=== PATIENT | male | born 1950 | race Caucasian/White ===

== ENCOUNTER 2023-06-18 12:14 | Inpatient (IN) ==
--- NOTE | 2023-06-18 12:20 | Emergency Department Note ---
Impression & Plan Symptomatic bradycardia, Atrial fibrillation, Subconjunctival hemorrhage ED Provider Note NAME: LAMBERT RAYMOND AGE: 73 SEX: M : 1950 ARRIVES VIA: Ambulance INFORMANT: Patient, ED PROVIDER(S): Julio Marquez DO CHIEF COMPLAINT: Weakness HPI: Is a 73-year-old male who presented to the emergency department directly from the [facility] for an evaluation of slow heart rate. The patient has a history of atrial fibrillation. He does take metoprolol. He has had no changes to his medication regimen. He does not take digoxin. The patient states he noticed some redness in the corner of his right eye. He was going in to be seen for this. When they took his vital signs he was noted to have low heart rate and he was sent to the emergency department by ambulance. ROS: See above HPI for pertinent positives & negatives. A total of 10 systems reviewed and were otherwise negative. PAST MEDICAL HISTORY: See Below PAST SURGICAL HISTORY: See Below FAMILY HISTORY: See Below SOCIAL HISTORY: See Below HOME MEDICATIONS: See Below ALLERGIES: See Below VITALS: See Below PHYSICAL EXAMINATION: GENERAL: Patient is awake alert in no acute distress patient is resting comfortably and showing no signs of anxiety EYES: A right subconjunctival hemorrhage was noted. The pupils are round and reactive. EARS, NOSE, MOUTH AND THROAT: The nose is without any evidence of any deformity. NECK: The neck is nontender and supple. RESPIRATORY: Normal respiratory effort is noted there is no evidence of wheezing rhonchi or rales CARDIOVASCULAR: Bradycardic heart rate was noted to auscultation. There is no definite murmur. GASTROINTESTINAL: The abdomen is soft. Abdomen is nontender. MUSCULOSKELETAL/EXTREMITIES: There is no evidence of gross deformity full range of motion is noted in the hips and shoulders. SKIN: Trace pedal edema was noted. NEUROLOGIC: Patient is awake alert and oriented x3 MEDICAL DECISION MAKING: The patient is a 73-year-old male who presented to the emergency department for low heart rate. The patient had a subconjunctival hemorrhage. The patient was seen at his family doctor's office but sent to the emergency department because of bradycardia. The patient has a history of atrial fibrillation. He does take beta-blockers. The patient does not take digoxin. The patient has been having weakness over the course the last few weeks. He is most likely having symptomatic bradycardia. I discussed the patient's laboratory and radiographic studies with him. Because of his ongoing bradycardia I discussed his condition with the on-call [facility] hospitalist group. They have agreed to evaluate the patient in the emergency department for further management and disposition. Triage Nursing notes reviewed. Prior medical records reviewed Vital Signs: reviewed and remarkable for elevated blood pressure and bradycardia. Differential diagnosis: Infection, dehydration, metabolic abnormality, hypo/hyperglycemia, electrolyte disturbance, anemia, hypoxia, cardiac sources, intracerebral event, toxicologic, neurologic, as well as other pathologies. ER treatment provided: See below Diagnostics interpreted by me: ECG: EKG was obtained in the emergency department. My interpretation is atrial fibrillation at 42 bpm. Right bundle-branch block pattern was noted. There were no PVCs. This was compared to the tracing that was sent from the [place] [facility] that was done at 1136 this AM. No significant changes were noted. Cardiac Monitoring: An order was placed for continuous cardiac monitoring. The monitor shows a rate of 45 bpm with atrial fibrillation. Laboratory studies: As stated above and show below. Imaging studies: See below. Radiographic imaging was reviewed by myself Consultation(s): I discussed this case with Becky who is on-call for the [facility] hospitalist group. Past Med/Surg History Medical History (Updated 06/18/23 @ 16:08 by Julio Marquez DO) Acne rosacea Atrial fibrillation Gout History of stroke HLD (hyperlipidemia) HTN (hypertension) ADE on CPAP Surgical History (Updated 06/18/23 @ 14:40 by Fina Santana PA-C) H/O lumbosacral spine surgery History of appendectomy S/p total knee replacement, bilateral Family History (Updated 06/18/23 @ 14:41 by Fina Santana PA-C) Mother Heart disease Stroke Father Stroke Cancer Social History (Updated 06/18/23 @ 14:41 by Fina Santana PA-C) Smoking Status: Former smoker Hx Alcohol Use: Yes Feels Safe at Home: Yes Allergies Allergies Allergy/AdvReac Type Severity Reaction Status Date / Time No Known Allergies Allergy Unverified 06/18/23 14:28 Home Meds Home Medications Medication Instructions Recorded Confirmed Prevagen 1 mg PO QAM 06/18/23 06/18/23 allopurinol 200 mg tablet 200 mg PO DAILY 06/18/23 06/18/23 apixaban 5 mg tablet 5 mg PO BID 06/18/23 06/18/23 atorvastatin 40 mg tablet 40 mg PO HS 06/18/23 06/18/23 cholecalciferol (vitamin D3) 50 50 mcg PO DAILY 06/18/23 06/18/23 mcg (2,000 unit) tablet (Vitamin D3) doxycycline hyclate 100 mg tablet 100 mg PO DAILY 06/18/23 06/18/23 lactobacillus combination no.4 3 3,000 mmu cells PO DAILY 06/18/23 06/18/23 billion cell capsule (Probiotic) metformin 500 mg tablet 500 mg PO BID 06/18/23 06/18/23 metoprolol tartrate 50 mg tablet 50 mg PO BID 06/18/23 06/18/23 metronidazole 0.75 % topical cream 1 applic topical BID 06/18/23 06/18/23 multivitamin 1 tab PO DAILY 06/18/23 06/18/23 pregabalin 150 mg capsule 150 mg PO BID 06/18/23 06/18/23 sildenafil 50 mg tablet 50 mg PO DAILY PRN Sexual Activity 06/18/23 06/18/23 tretinoin 0.1 % topical cream 1 applic topical HS 06/18/23 06/18/23 Results & Data (ED) Vital Signs Vital Signs - 24 hr 06/18/23 12:23 06/18/23 12:24 06/18/23 12:28 Temperature 36.8 C Temperature Source Oral Pulse Rate 47 L 48 L 47 L Pulse Rate [Apical] Respiratory Rate 18 17 Blood Pressure 148/80 H 148/80 H Blood Pressure [Right Arm] Blood Pressure Mean 102 102 Blood Pressure Mean [Right Arm] Pulse Oximetry 97 97 Oxygen Delivery Method Room Air Room Air Sepsis Recent Fever Within 48 Hours No Sepsis New/Unexplained Change in Mental Status N/A Sepsis Action Taken by Nursing No Action Required 06/18/23 13:30 06/18/23 14:26 06/18/23 15:00 Temperature Temperature Source Pulse Rate 40 L 45 L Pulse Rate [Apical] 42 L Respiratory Rate 18 17 Blood Pressure 140/80 148/80 H Blood Pressure [Right Arm] 148/80 H Blood Pressure Mean 100 102 Blood Pressure Mean [Right Arm] 102 Pulse Oximetry 95 97 98 Oxygen Delivery Method Room Air Room Air Room Air Sepsis Recent Fever Within 48 Hours Sepsis New/Unexplained Change in Mental Status Sepsis Action Taken by Fpc Medications Current Medication List: was personally reviewed by me Laboratory Data Attestation: I reviewed the patient's lab results. 06/18/23 12:25 06/18/23 12:25 Lab Results 06/18/23 06/18/23 06/18/23 Range/Units 12:25 12:25 12:25 WBC 6.31 (4.8-10.8) K/ul RBC 4.69 L (4.70-6.10) M/uL Hgb 15.0 (14.0-18.0) g/dl Hct 44.2 (42.0-52.0) % MCV 94.2 (80.0-100.0) fL MCH 32.0 (25.0-34.0) pg MCHC 33.9 (32.0-36.0) g/dL RDW Std Deviation 44.3 (36.4-46.3) fL RDW Coeff of Gabriel 12.9 (11.5-14.5) % Plt Count 154 (130-400) K/uL MPV 11.7 (9.4-12.4) fL Immature Gran % (Auto) 0.3 % Neut % (Auto) 65.4 % Lymph % (Auto) 23.5 % [place] % (Auto) 8.4 % Eos % (Auto) 1.9 % Baso % (Auto) 0.5 % Neut # (Auto) 4.13 (1.40-6.50) K/uL Lymph # (Auto) 1.48 (1.20-3.40) K/uL [place] # (Auto) 0.53 (0.11-0.59) K/uL Eos # (Auto) 0.12 (0.00-0.50) K/uL Baso # (Auto) 0.03 (0.00-0.20) K/uL Immature Gran # (Auto) 0.02 (0.01-0.20) K/uL PT 11.4 (9.0-12.0) Seconds INR 1.0 (0.9-1.1) APTT 31.6 H (21.0-31.0) Seconds PTT Ratio 1.1 Sodium 141 (136-145) mmol/L Potassium 4.4 (3.5-5.1) mmol/L Chloride 107 (98-107) mmol/L Carbon Dioxide 30 (21-32) mmol/L Anion Gap 4 (3-11) BUN 12 (6-23) mg/dl Creatinine 0.73 (0.6-1.4) mg/dl Est Cr Clr Drug Dosing 124.0 ml/min Est GFR ( Amer) 108.2 ml/min Est GFR (Non-Af Amer) 93.3 ml/min BUN/Creatinine Ratio 16.4 (10-20) Glucose 88 (70-99(Fasting)) mg/dl Calcium 9.2 (8.6-10.3) mg/dl Magnesium 2.1 (1.7-2.4) mg/dl Total Bilirubin 2.5 H (0.2-1.0) mg/dl AST 21 (13-39) U/L ALT 24 (7-52) U/L Alkaline Phosphatase 71 (34-104) U/L Troponin I High Sens 6.1 (0-20) pg/ml Total Protein 6.9 (6.0-8.3) gm/dl Albumin 4.3 (3.4-5.0) gm/dl Globulin 2.6 (2.5-4.0) gm/dl Albumin/Globulin Ratio 1.7 (0.9-2) TSH (0.300-4.500) uIu/ml Anaplasma Smear See Comment Babesia Smear See Comment 06/18/23 Range/Units 12:25 WBC (4.8-10.8) K/ul RBC (4.70-6.10) M/uL Hgb (14.0-18.0) g/dl Hct (42.0-52.0) % MCV (80.0-100.0) fL MCH (25.0-34.0) pg MCHC (32.0-36.0) g/dL RDW Std Deviation (36.4-46.3) fL RDW Coeff of Gabriel (11.5-14.5) % Plt Count (130-400) K/uL MPV (9.4-12.4) fL Immature Gran % (Auto) % Neut % (Auto) % Lymph % (Auto) % [place] % (Auto) % Eos % (Auto) % Baso % (Auto) % Neut # (Auto) (1.40-6.50) K/uL Lymph # (Auto) (1.20-3.40) K/uL [place] # (Auto) (0.11-0.59) K/uL Eos # (Auto) (0.00-0.50) K/uL Baso # (Auto) (0.00-0.20) K/uL Immature Gran # (Auto) (0.01-0.20) K/uL PT (9.0-12.0) Seconds INR (0.9-1.1) APTT (21.0-31.0) Seconds PTT Ratio Sodium (136-145) mmol/L Potassium (3.5-5.1) mmol/L Chloride (98-107) mmol/L Carbon Dioxide (21-32) mmol/L Anion Gap (3-11) BUN (6-23) mg/dl Creatinine (0.6-1.4) mg/dl Est Cr Clr Drug Dosing ml/min Est GFR ( Amer) ml/min Est GFR (Non-Af Amer) ml/min BUN/Creatinine Ratio (10-20) Glucose (70-99(Fasting)) mg/dl Calcium (8.6-10.3) mg/dl Magnesium (1.7-2.4) mg/dl Total Bilirubin (0.2-1.0) mg/dl AST (13-39) U/L ALT (7-52) U/L Alkaline Phosphatase (34-104) U/L Troponin I High Sens (0-20) pg/ml Total Protein (6.0-8.3) gm/dl Albumin (3.4-5.0) gm/dl Globulin (2.5-4.0) gm/dl Albumin/Globulin Ratio (0.9-2) TSH 1.157 (0.300-4.500) uIu/ml Anaplasma Smear Babesia Smear Imaging Data Attestation: I personally reviewed and interpreted this imaging study as follows: My Impression: 1 view chest x-ray was obtained in the emergency department. My interpretation is no free air or definite infiltrate, final report below. Radiologist's Impression: Chest X-Ray 06/18/23 12:18 XR chest 1V portable HISTORY: 73 years-old Male Dysrhythmia COMPARISON: None TECHNIQUE: AP view of the chest FINDINGS: Cardiac silhouette is enlarged. Mediastinal contours are within normal limits. No pneumothorax, pleural effusion, airspace consolidation or pulmonary edema. Bones appear grossly intact. Degenerative changes of the shoulders and spine. IMPRESSION: Cardiomegaly without acute process. ACT 112: Negative or not required by law. The above report was generated using voice recognition software. It may contain grammatical, syntax or spelling errors. Electronically signed by: Gurpreet Lindo M.D. 06/18/2023 12:58 PM Discharge Plan Visit Data Chief Complaint: Bradycardia Stated Complaint: BRADYCARDIA ED Provider: Julio Marquez Discharge Problem: Symptomatic bradycardia, Atrial fibrillation, Subconjunctival hemorrhage Patient Disposition: Home - Self-Care Forms Stand Alone Forms: [facility], [facility] Emergency Department, Important Visit Information Prescriptions Prescriptions: No Action Prevagen 1 mg PO QAM multivitamin Tablet 1 tab PO DAILY tretinoin 0.1 % Cream 1 applic TOPICAL HS atorvastatin 40 mg Tablet 40 mg PO HS metformin 500 mg Tablet 500 mg PO BID sildenafil 50 mg Tablet 50 mg PO DAILY MDD 1 PRN (Reason: Sexual Activity) Rx Instructions: administer 30 minutes to 4 hours before activity metronidazole 0.75 % Cream 1 applic TOPICAL BID metoprolol tartrate 50 mg Tablet 50 mg PO BID doxycycline hyclate 100 mg Tablet 100 mg PO DAILY pregabalin 150 mg Capsule 150 mg PO BID apixaban 5 mg Tablet 5 mg PO BID Probiotic 3 billion cell Capsule 3,000 mmu cells PO DAILY Rx Instructions: administer with a meal allopurinol 200 mg Tablet 200 mg PO DAILY cholecalciferol (vitamin D3) [Vitamin D3] 50 mcg (2,000 unit) Tablet 50 mcg PO DAILY Referrals Referrals: PCP,NO [Physician] -
[2023-06-18 12:49] LABS: Basophils # (auto) 0.03 K/uL (0.00-0.20); Basophils % (auto) 0.5 %; Eosinophils # (auto) 0.12 K/uL (0.00-0.50); Eosinophils % (auto) 1.9 %; Hematocrit (blood only) 44.2 % (42.0-52.0); Immature Granulocytes # (auto) 0.02 K/uL (0.01-0.20); Immature Granulocytes % (auto) 0.3 %; Lymphocytes # (auto) 1.48 K/uL (1.20-3.40); Lymphocytes % (auto) 23.5 %; Mean Corpuscular Hgb Conc 33.9 g/dL (32.0-36.0); Mean Corpuscular Volume 94.2 fL (80.0-100.0); Mean Platelet Volume 11.7 fL (9.4-12.4); Monocytes # (auto) 0.53 K/uL (0.11-0.59); Monocytes % (auto) 8.4 %; Neutrophils # (auto) 4.13 K/uL (1.40-6.50); Neutrophils % (auto) 65.4 %; Platelet Count 154 K/uL (130-400); RDW Coefficient of Variation 12.9 % (11.5-14.5); RDW Standard Deviation 44.3 fL (36.4-46.3); Red Blood Count 4.69 M/uL (4.70-6.10); White Blood Count 6.31 K/ul (4.8-10.8)
[2023-06-18 12:57] LABS: Partial Thromboplastin Ratio 1.1; Partial Thromboplastin Time 31.6 Seconds (21.0-31.0); Prothrombin Time 11.4 Seconds (9.0-12.0)
--- NOTE | 2023-06-18 13:00 | XRay Report ---
XR chest 1V portable HISTORY: 73 years-old Male Dysrhythmia COMPARISON: None TECHNIQUE: AP view of the chest FINDINGS: Cardiac silhouette is enlarged. Mediastinal contours are within normal limits. No pneumothorax, pleur al effusion, airspace consolidation or pulmonary edema. Bones appear grossly intact. Degenerative mustapha nges of the shoulders and spine. IMPRESSION: Cardiomegaly without acute process. ACT 112: Negative or not required by law. The above report was generated using voice recognition software. It may contain grammatical, syntax o r spelling errors. Electronically signed by: Gurpreet Lindo M.D. 06/18/2023 12:58 PM
[2023-06-18 13:08] LABS: Albumin Globulin Ratio 1.7 (0.9-2); Albumin Level 4.3 gm/dl (3.4-5.0); BUN Creatinine Ratio 16.4 (10-20); Bilirubin,Total 2.5 mg/dl (0.2-1.0); Calcium 9.2 mg/dl (8.6-10.3); Est GFR (African American) 108.2 ml/min; Est GFR (Non-African American) 93.3 ml/min; Globulin 2.6 gm/dl (2.5-4.0); Magnesium 2.1 mg/dl (1.7-2.4); Potassium 4.4 mmol/L (3.5-5.1); Total Protein 6.9 gm/dl (6.0-8.3)
[2023-06-18 13:14] LABS: Troponin I High Sensitivity 6.1 pg/ml (0-20)
--- NOTE | 2023-06-18 14:43 | History & Physical Report ---
Date of Service June 18, 2023 Assessment & Plan (1) Atrial fibrillation: (2) HTN (hypertension): (3) HLD (hyperlipidemia): (4) Bradycardia: (5) Obesity (BMI 35.0-39.9 without comorbidity): (6) ADE on CPAP: Plan: 73-year-old male with PMHx of chronic A-fib, HTN, HLD, ADE on CPAP, history of stroke, s/p thyroid nodule removal, severe obesity, who presented to outpatient [facility] office today for a conjunctival hemorrhage where he was noted to have heart rate in the 40s there so was referred to the ER. A-fib chronic Bradycardia -Admit to PCU for observation overnight -Heart rate has been consistently in the high 30s during evaluation, highest is 45, patient reports that this has been ongoing for the past 2 months and has received multiple number of alerts on his Apple Watch signifying low heart rate. He admits to increased fatigue and wearing out whenever he is doing something very physical. 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 Occasionally admits to lightheadedness. Denies any chest pain or shortness of breath. -will hold metoprolol dose this evening and possibly resume metoprolol tartrate 25 twice daily tomorrow pending improvement in heart rate -Cardiology consulted -Echocardiogram ordered -Check TSH, Lyme's panel, anaplasmosis Rosacea -Patient may continue metronidazole and tretinoin cream topically, patient is also on doxycycline 200 mg once in the morning for this Gout -Continue allopurinol HLD - Chronic, stable, continue atorvastatin - Check lipid panel with am labs ADE on CPAP - Will order cpap here renyaldo, does not have his machine with him currently DM type II -Check A1c with a.m. labs -Holding p.o. metformin -Check ISS with Accu-Cheks ACHS Obesity - Diet and exercise to be discussed during stay - BMI 35.8 DVT ppx: beatrice /FEN: HH/DM diet IV/Lines: 2 peripheral IVs CODE: FULL Dispo: From home, observation overnight and likely discharge home tomorrow History of Present Illness Chief Complaint: Bradycardia Primary Care Provider: [facility] This is a 73-year-old male with PMHx of chronic A-fib, HTN, HLD, ADE on CPAP, history of stroke, s/p thyroid nodule removal, severe obesity, who presented to outpatient [facility] office today for a conjunctival hemorrhage where he was noted to have heart rate in the 40s there so was referred to the ER. 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 Honestly he has noticed his HR on his watch be in the 40s intermittently for the past 2 months. He Denies chest pain and shortness of breath. His watch gives him a warning when his HR is below 40 and has been doing this pretty consistently. Patient has been taking his medications as instructed including metoprolol 50 mg twice a day. Allergies Allergy/AdvReac Type Severity Reaction Status Date / Time No Known Allergies Allergy Unverified 06/18/23 14:28 Home Medications Medication Instructions Recorded Confirmed Type allopurinol 200 mg tablet 200 mg PO DAILY 06/18/23 06/18/23 History apixaban 5 mg tablet 5 mg PO BID 06/18/23 06/18/23 History atorvastatin 40 mg tablet 40 mg PO HS 06/18/23 06/18/23 History cholecalciferol (vitamin D3) 50 50 mcg PO DAILY 06/18/23 06/18/23 History mcg (2,000 unit) tablet (Vitamin D3) doxycycline hyclate 100 mg tablet 100 mg PO DAILY 06/18/23 06/18/23 History lactobacillus combination no.4 3 3,000 mmu cells PO DAILY 06/18/23 06/18/23 History billion cell capsule (Probiotic) metformin 500 mg tablet 500 mg PO BID 06/18/23 06/18/23 History metronidazole 0.75 % topical cream 1 applic topical BID 06/18/23 06/18/23 History multivitamin 1 tab PO DAILY 06/18/23 06/18/23 History sildenafil 50 mg tablet 50 mg PO DAILY PRN Sexual Activity 06/18/23 06/18/23 History tretinoin 0.1 % topical cream 1 applic topical HS 06/18/23 06/18/23 History Past Med/Surg History Medical History Acne rosacea Atrial fibrillation Gout History of stroke HLD (hyperlipidemia) HTN (hypertension) ADE on CPAP Surgical History H/O lumbosacral spine surgery History of appendectomy S/p total knee replacement, bilateral Family History Mother Heart disease Stroke Father Stroke Cancer Social History Smoking Status: Never smoker Hx Alcohol Use: Yes Alcohol type: hard liquor Hx Substance Use: No Preferred Language: Malawian 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 Beliefs That Will Affect Care: None Current Living Situation: Spouse Other Information That Helps Us Care for You: No Feels Safe at Home: Yes Safety Concerns: Feels Safe At This Time Assistive Devices: Denture - Upper, Denture - Lower and Hearing Aid - Bilateral Review of Systems Review of Systems: Constitutional: No fever, sweats or chills Eyes: No diplopia, no worsening or blurred vision ENT: normal hearing, no trouble swallowing Respiratory: No cough, sputum, dyspnea at rest or on exertion Cardiovascular: No chest pain, tightness or palpitations, As per HPI Abdomen: No pain, nausea, vomiting, diarrhea or constipation Musculoskeletal: No joint pain, calf pain, swelling Neurologic: No weakness, numbness/tingling, or balance problems Psychiatric: No anxiety or depression Skin: No rash or itch Physical Exam Physical Exam: General: awake, alert, no apparent distress,+ obese with BMI of 35.8 Head: Normocephalic, atraumatic ENT: PERRL, EOMI, no pharyngeal exudate, mucous membranes moist Chest: Clear to auscultation, on room air, no adventitious breath sounds Cardiac Bradycardic in the high 30s and irregularly irregular, no murmur, no JVD, normal peripheral pulses, good capillary refill Abdominal: NABS x 4 quadrants, soft, nondistended, nontender to palpation, no rebound or guarding Extremities: Normal inspection, no peripheral edema or erythema, calfs nontender to palpation Psych: Normal mood and affect Neuro: AAO x 3, strength intact bilaterally and rated 5/5, no motor deficits, speech is clear, no peripheral sensory deficits Results & Data Results & Data Vital Signs (Past 12 Hours) Vital Signs Temp Pulse Pulse Resp BP BP Pulse Ox 06/18/23 14:26 42 L 148/80 H 97 06/18/23 13:30 40 L 18 140/80 95 06/18/23 12:28 47 L 17 148/80 H 97 06/18/23 12:24 48 L 06/18/23 12:23 36.8 C 47 L 18 148/80 H 97 O2 Del Method 06/18/23 14:26 Room Air 06/18/23 13:30 Room Air 06/18/23 12:28 Room Air 06/18/23 12:24 06/18/23 12:23 Room Air Laboratory Results 06/18/23 06/18/23 06/18/23 12:25 12:25 12:25 WBC RBC Hgb Hct MCV MCH MCHC RDW Std Deviation RDW Coeff of Gabriel Plt Count MPV Immature Gran % (Auto) Neut % (Auto) Lymph % (Auto) [place] % (Auto) Eos % (Auto) Baso % (Auto) Neut # (Auto) Lymph # (Auto) [place] # (Auto) Eos # (Auto) Baso # (Auto) Immature Gran # (Auto) PT 11.4 INR 1.0 APTT 31.6 H PTT Ratio 1.1 Sodium 141 Potassium 4.4 Chloride 107 Carbon Dioxide 30 Anion Gap 4 BUN 12 Creatinine 0.73 Est Cr Clr Drug Dosing 124.0 Est GFR ( Amer) 108.2 Est GFR (Non-Af Amer) 93.3 BUN/Creatinine Ratio 16.4 Glucose 88 Calcium 9.2 Magnesium 2.1 Total Bilirubin 2.5 H AST 21 ALT 24 Alkaline Phosphatase 71 Troponin I High Sens 6.1 Total Protein 6.9 Albumin 4.3 Globulin 2.6 Albumin/Globulin Ratio 1.7 TSH 1.157 06/18/23 12:25 WBC 6.31 RBC 4.69 L Hgb 15.0 Hct 44.2 MCV 94.2 MCH 32.0 MCHC 33.9 RDW Std Deviation 44.3 RDW Coeff of Gabriel 12.9 Plt Count 154 MPV 11.7 Immature Gran % (Auto) 0.3 Neut % (Auto) 65.4 Lymph % (Auto) 23.5 [place] % (Auto) 8.4 Eos % (Auto) 1.9 Baso % (Auto) 0.5 Neut # (Auto) 4.13 Lymph # (Auto) 1.48 [place] # (Auto) 0.53 Eos # (Auto) 0.12 Baso # (Auto) 0.03 Immature Gran # (Auto) 0.02 PT INR APTT PTT Ratio Sodium Potassium Chloride Carbon Dioxide Anion Gap BUN Creatinine Est Cr Clr Drug Dosing Est GFR ( Amer) Est GFR (Non-Af Amer) BUN/Creatinine Ratio Glucose Calcium Magnesium Total Bilirubin AST ALT Alkaline Phosphatase Troponin I High Sens Total Protein Albumin Globulin Albumin/Globulin Ratio TSH Diagnostic Findings Chest X-Ray 06/18/23 12:18 XR chest 1V portable HISTORY: 73 years-old Male Dysrhythmia COMPARISON: None TECHNIQUE: AP view of the chest FINDINGS: Cardiac silhouette is enlarged. Mediastinal contours are within normal limits. No pneumothorax, pleural effusion, airspace consolidation or pulmonary edema. Bones appear grossly intact. Degenerative changes of the shoulders and spine. IMPRESSION: Cardiomegaly without acute process. ACT 112: Negative or not required by law. The above report was generated using voice recognition software. It may contain grammatical, syntax or spelling errors. Electronically signed by: Gurpreet Lindo M.D. 06/18/2023 12:58 PM ECG Additional Comments: 18-JUN-2023 12:20:18 [facility]-EDSTAT ROUTINE RETRIEVAL Atrial fibrillation with slow ventricular response Left axis deviation Right bundle branch block Abnormal ECG No previous ECGs available 25mm/[id number] 243CID: 21Unconfirmed Vent. rate 42 BPM MA interval * ms QRS duration 168 ms QT/QTc 516/430 ms Code Status & VTE Plan Code Status Full code: Discussed with the patient at bedside Supervising Physician Co-Signing Physician Notes Pt was seen and examined. Agreed with Fina JO exam, assessment and plan. 73-year-old male with PMHx of chronic A-fib, HTN, HLD, ADE on CPAP, history of stroke, s/p thyroid nodule removal, severe obesity [facility] today for a conjunctival hemorrhage where he was noted to have heart rate in the 40s there so was referred to the ER. 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 Honestly he has noticed his HR on his watch be in the 40s intermittently for the past 2 months. He Denies chest pain and shortness of breath. His watch gives him a warning when his HR is below 40 and has been doing this pretty consistently. Patient has been taking his medications as instructed including metoprolol 50 mg twice a day.
--- NOTE | 2023-06-18 16:25 | Cardiology Consultation ---
Date of Consultation June 18, 2023 Assessment & Plan (1) Atrial fibrillation with slow ventricular response: (2) HLD (hyperlipidemia): (3) HTN (hypertension): Plan 73-year-old male referred from outpatient [place] clinic due to bradycardia. Patient with positional lightheadedness. No overt syncope or near syncope. Rhythm is atrial fibrillation with slow ventricular response. No significant pauses currently however heart rate dipping as low as 30 bpm. Hold beta-issa thera py. Continue telemetry monitoring. Evaluation regarding tickborne illness. Continue oral anticoagulation with Eliquis. No indication for temporary transvenous pacemaker at this time. History of Present Illness Reason for Consultation: Bradycardia Requesting Physician: Dr. Alonzo Attending Physician: Dr. Alonzo History of Present Illness 73-year-old male present to the emergency department via [facility] clinic. Evaluated today due to subconjunctival hemorrhage. During visit, significant bradycardia noted on exam and he was referred to the emergency department for further evaluation and treatment. In the ER telemetry reveals atrial fibrillation with heart rate ranging from 35 up to 45 bpm. Patient reports occasional lightheadedness primarily with positional change. No syncope or near syncope. Chronically anticoagulated with Eliquis. Treated with beta- issa, metoprolol 50 mg twice daily. Denies exertional chest pain or unusual shortness of breath. Active on a daily basis. 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 Denies any recent change or decline in functional capacity. No palpitations, orthopnea, or PND. Reports pedal edema present near the end of the day primarily in hot weather. Denies personal history of congestive heart failure, rheumatic fever as a child, coronary artery disease, or peripheral vascular disease. Reports a recent diagnosis of diabetes. He is generally cared for in the [place] medical system. Unknown to the [facility] cardiology practice. Allergies Allergy/AdvReac Type Severity Reaction Status Date / Time No Known Allergies Allergy Unverified 06/18/23 14:28 Home Medications Medication Instructions Recorded Confirmed Type allopurinol 200 mg tablet 200 mg PO DAILY 06/18/23 06/18/23 History apixaban 5 mg tablet 5 mg PO BID 06/18/23 06/18/23 History atorvastatin 40 mg tablet 40 mg PO HS 06/18/23 06/18/23 History cholecalciferol (vitamin D3) 50 50 mcg PO DAILY 06/18/23 06/18/23 History mcg (2,000 unit) tablet (Vitamin D3) doxycycline hyclate 100 mg tablet 100 mg PO DAILY 06/18/23 06/18/23 History lactobacillus combination no.4 3 3,000 mmu cells PO DAILY 06/18/23 06/18/23 History billion cell capsule (Probiotic) metformin 500 mg tablet 500 mg PO BID 06/18/23 06/18/23 History metoprolol tartrate 50 mg tablet 50 mg PO BID 06/18/23 06/18/23 History metronidazole 0.75 % topical cream 1 applic topical BID 06/18/23 06/18/23 History multivitamin 1 tab PO DAILY 06/18/23 06/18/23 History sildenafil 50 mg tablet 50 mg PO DAILY PRN Sexual Activity 06/18/23 06/18/23 History tretinoin 0.1 % topical cream 1 applic topical HS 06/18/23 06/18/23 History Patient History Medical History Acne rosacea Atrial fibrillation Gout History of stroke HLD (hyperlipidemia) HTN (hypertension) ADE on CPAP Surgical History H/O lumbosacral spine surgery History of appendectomy S/p total knee replacement, bilateral Family History Mother Heart disease Stroke Father Stroke Cancer Social History Smoking Status: Former smoker Hx Alcohol Use: Yes Feels Safe at Home: Yes Review of Systems Review of Systems: All systems reviewed & are unremarkable except as noted in Subjective Physical Exam Constitutional: well developed and well nourished; no acute distress Respiratory: no respiratory distress, no labored breathing and no retractions Auscultation: lungs clear to auscultation bilaterally; no crackles, no rales and no rhonchi Cardiovascular: Rate/Rhythm: regular rate and regular rhythm Heart Sounds: normal S1 and normal S2; no murmur Vessels: no JVD and no carotid bruit Extremities: no edema Gastrointestinal (Abdomen): Inspection/Auscultation: abdomen normal to inspection and normal bowel sounds; abdomen not distended Percussion/Palpation: abdomen soft; abdomen nontender, no guarding and abdomen not rigid Neurologic: CN's II-XI intact bilaterally and moves all extremities; no focal motor deficits Psychiatric: A+Ox3, euthymic affect Results & Data Vital Signs (Past 12 Hours) Vital Signs Temp Pulse Pulse Resp BP BP Pulse Ox 06/18/23 15:00 45 L 17 148/80 H 98 06/18/23 14:26 42 L 148/80 H 97 06/18/23 13:30 40 L 18 140/80 95 06/18/23 12:28 47 L 17 148/80 H 97 06/18/23 12:24 48 L 06/18/23 12:23 36.8 C 47 L 18 148/80 H 97 O2 Del Method 06/18/23 15:00 Room Air 06/18/23 14:26 Room Air 06/18/23 13:30 Room Air 06/18/23 12:28 Room Air 06/18/23 12:24 06/18/23 12:23 Room Air Laboratory Results Cardiac Enzymes 06/18/23 Range/Units 12:25 AST 21 (13-39) U/L Troponin I High Sens 6.1 (0-20) pg/ml Coagulation 06/18/23 Range/Units 12:25 PT 11.4 (9.0-12.0) Seconds APTT 31.6 H (21.0-31.0) Seconds CBC 06/18/23 Range/Units 12:25 WBC 6.31 (4.8-10.8) K/ul RBC 4.69 L (4.70-6.10) M/uL Hgb 15.0 (14.0-18.0) g/dl Hct 44.2 (42.0-52.0) % Plt Count 154 (130-400) K/uL Neut # (Auto) 4.13 (1.40-6.50) K/uL Lymph # (Auto) 1.48 (1.20-3.40) K/uL Gregory # (Auto) 0.53 (0.11-0.59) K/uL Eos # (Auto) 0.12 (0.00-0.50) K/uL Baso # (Auto) 0.03 (0.00-0.20) K/uL Comprehensive Metabolic Panel 06/18/23 Range/Units 12:25 Sodium 141 (136-145) mmol/L Potassium 4.4 (3.5-5.1) mmol/L Chloride 107 (98-107) mmol/L Carbon Dioxide 30 (21-32) mmol/L BUN 12 (6-23) mg/dl Creatinine 0.73 (0.6-1.4) mg/dl Glucose 88 (70-99(Fasting)) mg/dl Calcium 9.2 (8.6-10.3) mg/dl AST 21 (13-39) U/L ALT 24 (7-52) U/L Alkaline Phosphatase 71 (34-104) U/L Total Protein 6.9 (6.0-8.3) gm/dl Albumin 4.3 (3.4-5.0) gm/dl Intake and Output 06/18/23 06/18/23 06/18/23 06:59 14:59 22:59 Other: Weight 119.8 kg Weight Measurement Method Built in [facility] Patient Weight 06/19/23 06:59 Weight 119.8 kg ECG Additional Comments: ECG: Atrial fibrillation with slow ventricular response, ventricular rate 42 bpm, right bundle branch block.
--- NOTE | 2023-06-18 16:52 | Electrocardiogram Report ---
Test Reason : Blood Pressure : / mmHG Vent. Rate : 042 BPM Atrial Rate : 000 BPM P-R Int : 000 ms QRS Dur : 168 ms QT Int : 516 ms P-R-T Axes : 000 -60 020 degrees QTc Int : 430 ms Atrial fibrillation with slow ventricular response Left axis deviation Right bundle branch block Abnormal ECG No previous ECGs available Confirmed by Ronaldo Kaur ([id number]) on 06/18/2023 4:52:24 PM Referred By: Confirmed By:Ronaldo Kaur
[2023-06-18] MEDS ORDERED: ONDANSETRON INJ 2 MG/ML 2 ML VIAL IV PRN (18:43)
[2023-06-18] MEDS ORDERED: GLUCOSE 40% GEL 15 GM TUBE PO PRN (18:43)
[2023-06-18] MEDS ORDERED: CARBOHYDRATES FOR HYPOGLYCEMIA PO PRN (18:43)
[2023-06-18] MEDS ORDERED: ACETAMINOPHEN 325 MG TAB PO PRN (18:43)
[2023-06-18] MEDS ORDERED: GLUCOSE 10 TAB/TUBE PO PRN (18:43)
[2023-06-18] MEDS ORDERED: GLUCAGON FOR INJ 1 MG VIAL SQ PRN (18:43)
[2023-06-18] MEDS ORDERED: DEXTROSE 50% 50 ML SYRINGE IV PRN (18:43)
[2023-06-18] MEDS: INSULIN ASPART PER UNIT CHARGE SC SCH ×2 (19:56→21:20)
[2023-06-18] MEDS ORDERED: TRETINOIN 0.1% TOP SCH (21:00)
[2023-06-18] MEDS: metroNIDAZOLE 0.75% TOPICAL GEL 45 GM TUBE TOP SCH (21:25)
[2023-06-18] MEDS: ATORVASTATIN 40 MG TAB PO SCH (21:33)
[2023-06-18] MEDS: APIXABAN 5 MG TABLET PO SCH (21:33)
[2023-06-18] MEDS: PREGABALIN 150 MG CAP PO SCH (21:34)
[2023-06-19 07:09] LABS: Hematocrit (blood only) 42.5 % (42.0-52.0); Hemoglobin 14.8 g/dl (14.0-18.0); Mean Corpuscular Hemoglobin 32.6 pg (25.0-34.0); Mean Corpuscular Hgb Conc 34.8 g/dL (32.0-36.0); Mean Corpuscular Volume 93.6 fL (80.0-100.0); Mean Platelet Volume 11.8 fL (9.4-12.4); Platelet Count 135 K/uL (130-400); RDW Coefficient of Variation 12.7 % (11.5-14.5); RDW Standard Deviation 43.7 fL (36.4-46.3); Red Blood Count 4.54 M/uL (4.70-6.10); White Blood Count 5.87 K/ul (4.8-10.8)
--- NOTE | 2023-06-19 07:17 | Electrocardiogram Report ---
Test Reason : Blood Pressure : / mmHG Vent. Rate : 048 BPM Atrial Rate : 060 BPM P-R Int : 000 ms QRS Dur : 174 ms QT Int : 512 ms P-R-T Axes : 000 -52 -03 degrees QTc Int : 457 ms Atrial fibrillation with slow ventricular response Left axis deviation Right bundle branch block Abnormal ECG Confirmed by Giuliano Harden ([id number]) on 06/19/2023 7:17:36 AM Referred By: [facility] Confirmed By:Phoenix Harden
[2023-06-19 07:30] LABS: Calcium 8.9 mg/dl (8.6-10.3); Creatinine Clr Calc Pharmacy 120.6 ml/min; Est GFR (African American) 107.6 ml/min; Est GFR (Non-African American) 92.8 ml/min; Potassium 4.4 mmol/L (3.5-5.1)
[2023-06-19] MEDS: INSULIN ASPART PER UNIT CHARGE SC SCH ×4 (08:41→20:29)
[2023-06-19] MEDS: APIXABAN 5 MG TABLET PO SCH ×2 (08:43→20:37)
[2023-06-19] MEDS: CHOLECALCIFEROL 1,000 UNITS 25 MCG TAB PO SCH (08:44)
[2023-06-19] MEDS: DOXYCYCLINE HYCLATE 100 MG CAP PO SCH (08:44)
[2023-06-19] MEDS: ADVANCED PROBIOTIC 1250 MG CAPSULE PO SCH (08:45)
[2023-06-19] MEDS: metroNIDAZOLE 0.75% TOPICAL GEL 45 GM TUBE TOP SCH ×2 (08:45→20:37)
[2023-06-19] MEDS: allopurinoL 100 MG TAB PO SCH (08:45)
[2023-06-19] MEDS: MULTIVITAMIN TAB PO SCH (08:46)
[2023-06-19] MEDS: PREGABALIN 150 MG CAP PO SCH ×2 (09:29→20:38)
[2023-06-19 09:50] LABS: Estimated Average Glucose 140 mg/dl; Hemoglobin A1C 6.5 % (4.5-5.6)
--- NOTE | 2023-06-19 13:06 | Cardiology Progress Note ---
Date of Service June 19, 2023 Assessment & Plan (1) Atrial fibrillation with slow ventricular response: (2) HLD (hyperlipidemia): (3) HTN (hypertension): Plan 73-year-old male [facility] due [facility]. Patient with positional lightheadedness. No overt syncope or near syncope. Rhythm is atrial fibrillation with slow ventricular response. No significant pauses currently however heart rate dipping as low as 30 bpm. Hold beta-issa therapy. Continue telemetry monitoring. Evaluation regarding tickborne illness. Continue oral anticoagulation with Eliquis. No indication for temporary transvenous pacemaker at this time. 08/19/2023 Impression: 73-year-old male with persistent atrial fibrillation noted on routine examination to have atrial fibrillation with slow ventricular response rate. Beta-issa has been held Atrial fibrillation rates are increasing slightly but still relatively slow. Findings suggest intrinsic conduction system disease and may ultimately warrant pacemaker insertion Maintain telemetry Hold Eliquis in a.m. Admission and Anticipated Discharge Date Admission Date: June 18, 2023 Subjective Patient seen and examined, chart, medications, telemetry reviewed. Mild dizziness but otherwise no acute complaints. No chest pains or discomfort no tachypalpitation no orthopnea or peripheral edema. Telemetry still with atrial fibrillation with slow ventricular response rate. Rates have increased slightly but still trending towards 40s at time Review of Systems Review of Systems: All systems reviewed & are unremarkable except as noted in Subjective Physical Exam Constitutional: well developed and well nourished; no acute distress Respiratory: no respiratory distress, no labored breathing and no retractions Auscultation: lungs clear to auscultation bilaterally; no crackles, no rales and no rhonchi Cardiovascular: Rate/Rhythm: regular rate and regular rhythm Heart Sounds: normal S1 and normal S2; no murmur Vessels: no JVD and no carotid bruit E xtremities: no edema Gastrointestinal (Abdomen): Inspection/Auscultation: abdomen normal to inspection and normal bowel sounds; abdomen not distended Percussion/Palpation: abdomen soft; abdomen nontender, no guarding and abdomen not rigid Neurologic: CN's II-XI intact bilaterally and moves all extremities; no focal motor deficits Psychiatric: A+Ox3, euthymic affect Results & Data Vital Signs (Past 12 Hours) Vital Signs Temp Pulse Resp BP Pulse Ox O2 Del Method 06/19/23 12:01 36.9 C 52 L 18 134/76 95 Room Air 06/19/23 08:00 36.9 C 40 L 18 159/94 H 97 Room Air 06/19/23 02:52 36.7 C 51 L 20 109/78 95 Room Air Laboratory Results Laboratory Results - last 24 hr 06/18/23 06/18/23 06/18/23 12:25 12:25 12:25 WBC RBC Hgb Hct MCV MCH MCHC RDW Std Deviation RDW Coeff of Gabriel Plt Count MPV Sodium Potassium Chloride Carbon Dioxide Anion Gap BUN Creatinine Est Cr Clr Drug Dosing Est GFR ( Amer) Est GFR (Non-Af Amer) BUN/Creatinine Ratio Glucose POC Glucose Estimat Average Glucose Hemoglobin A1c Calcium Troponin I High Sens 6.1 Triglycerides Cholesterol LDL Cholesterol, Calc VLDL Cholesterol, Calc HDL Cholesterol Cholesterol/HDL Ratio TSH 1.157 Anaplasma Smear See Comment A. phagocytophilum DNA Babesia Smear See Comment Babesia microti DNA PCR 06/18/23 06/18/23 06/18/23 15:40 15:40 19:41 WBC RBC Hgb Hct MCV MCH MCHC RDW Std Deviation RDW Coeff of Gabriel Plt Count MPV Sodium Potassium Chloride Carbon Dioxide Anion Gap BUN Creatinine Est Cr Clr Drug Dosing Est GFR ( Amer) Est GFR (Non-Af Amer) BUN/Creatinine Ratio Glucose POC Glucose 104 H Estimat Average Glucose Hemoglobin A1c Calcium Troponin I High Sens Triglycerides Cholesterol LDL Cholesterol, Calc VLDL Cholesterol, Calc HDL Cholesterol Cholesterol/HDL Ratio TSH Anaplasma Smear A. phagocytophilum DNA Pending Babesia Smear Babesia microti DNA PCR Pending 06/18/23 06/19/23 06/19/23 21:14 06:21 06:21 WBC 5.87 RBC 4.54 L Hgb 14.8 Hct 42.5 MCV 93.6 MCH 32.6 MCHC 34.8 RDW Std Deviation 43.7 RDW Coeff of Gabriel 12.7 Plt Count 135 MPV 11.8 Sodium 140 Potassium 4.4 Chloride 107 Carbon Dioxide 28 Anion Gap 5 BUN 17 Creatinine 0.74 Est Cr Clr Drug Dosing 120.6 Est GFR ( Amer) 107.6 Est GFR (Non-Af Amer) 92.8 BUN/Creatinine Ratio 23.0 H Glucose 122 H POC Glucose 143 H Estimat Average Glucose Hemoglobin A1c Calcium 8.9 Troponin I High Sens Triglycerides 134 Cholesterol 116 LDL Cholesterol, Calc 60 VLDL Cholesterol, Calc 27 HDL Cholesterol 29 Cholesterol/HDL Ratio 4.0 TSH Anaplasma Smear A. phagocytophilum DNA Babesia Smear Babesia microti DNA PCR 06/19/23 06/19/23 06/19/23 06:21 07:26 11:28 WBC RBC Hgb Hct MCV MCH MCHC RDW Std Deviation RDW Coeff of Gabriel Plt Count MPV Sodium Potassium Chloride Carbon Dioxide Anion Gap BUN Creatinine Est Cr Clr Drug Dosing Est GFR ( Amer) Est GFR (Non-Af Amer) BUN/Creatinine Ratio Glucose POC Glucose 120 H 105 H Estimat Average Glucose 140 Hemoglobin A1c 6.5 H Calcium Troponin I High Sens Triglycerides Cholesterol LDL Cholesterol, Calc VLDL Cholesterol, Calc HDL Cholesterol Cholesterol/HDL Ratio TSH Anaplasma Smear A. phagocytophilum DNA Babesia Smear Babesia microti DNA PCR
--- NOTE | 2023-06-19 16:09 | Hospitalist Progress Note ---
Date of Service June 19, 2023 Assessment & Plan (1) Atrial fibrillation: (2) HTN (hypertension): (3) HLD (hyperlipidemia): (4) Bradycardia: (5) Obesity (BMI 35.0-39.9 without comorbidity): (6) ADE on CPAP: Plan: Patient is a 73 yr male with H/O Chronic A-fib, HTN, HLD, ADE on CPAP, history of stroke, s/p thyroid nodule removal, severe obesity, who presented to outpatient [facility] office today for a conjunctival hemorrhage where he was noted to have heart rate in the 40s there so was referred to the ER. Atrial fibrillation with slow ventricular response Reports having ongoing intermittent dizziness but denies any syncopal episodes Normal TSH Lyme screen pending -ECHO: Left ventricle is normal in size. Mild concentric LVH. Left ventricle wall motion is normal. EF 50 to 55%. Left atrium is severely dilated. Right atrium is mildly dilated. Focal calcification of the left coronary aortic valve cusp. Hold beta-blockers On Eliquis for anticoagulation Appreciate cardiology input Will eventually likely need pacemaker placement Rosacea -continue metronidazole and tretinoin cream topically, Also on PO doxycycline 100 mg daily Gout -Continue allopurinol HLD Continue stable ADE on CPAP Continue CPAP at bedtime DM type II HbA1c 6.5 Hold metformin Continue insulin while hospitalized Obesity BMI 36 DVT Px: Eliquis CODE STATUS: FULL CODE Admission and Anticipated Discharge Date Admission Date: June 19, 2023 Subjective Patient is seen and examined at bedside Reports intermittent dizziness Sitting in chair during my encounter Denies any chest pain, dyspnea, nausea, vomiting, abdominal pain Discussed with cardiology today Also denies any blurry, double vision Review of Systems Review of Systems: All systems reviewed & are unremarkable except as noted in Subjective Physical Exam Physical Exam: Physical Exam: Vitals signs as noted above General Appearance:Moderately built and nourished, no apparent distress Head: normocephalic, Atraumatic Eyes: normal inspection, EOMI, +R subconjunctival hemorrhage Neck: supple, Trachea midline Respiratory/Chest: Normal breath sounds, CTA, No accessory muscle use Cardiovascular: S1, S2, No murmur, + bradycardia Abdomen/GI:Soft, Non tender, Bowel sounds present Extremities/Musculoskeletal:normal inspection, no edema Neurologic/Psych:AAOX3, grossly no focal neurological deficits Skin: normal color, warm Results & Data Results & Data Vital Signs (Past 12 Hours) Vital Signs Temp Pulse Pulse Resp BP Pulse Ox O2 Del Method 06/19/23 15:45 61 06/19/23 15:36 36.8 C 65 18 148/79 H 94 Room Air 06/19/23 08:00 76 06/19/23 12:01 36.9 C 52 L 18 134/76 95 Room Air 06/19/23 08:00 36.9 C 40 L 18 159/94 H 97 Room Air Laboratory Results Short CBC 06/19/23 Range/Units 06:21 WBC 5.87 (4.8-10.8) K/ul Hgb 14.8 (14.0-18.0) g/dl Hct 42.5 (42.0-52.0) % Plt Count 135 (130-400) K/uL BMP 06/19/23 06:21 Sodium 140 Potassium 4.4 Chloride 107 Carbon Dioxide 28 BUN 17 Creatinine 0.74 Glucose 122 H Calcium 8.9 (1) Atrial fibrillation Atrial fibrillation type: unspecified Qualified Code(s): I48.91 - Unspecified atrial fibrillation
[2023-06-19] MEDS: ATORVASTATIN 40 MG TAB PO SCH (20:37)
[2023-06-20 07:15] LABS: Hematocrit (blood only) 47.3 % (42.0-52.0); Hemoglobin 16.8 g/dl (14.0-18.0); Mean Corpuscular Hemoglobin 32.1 pg (25.0-34.0); Mean Corpuscular Hgb Conc 35.5 g/dL (32.0-36.0); Mean Corpuscular Volume 90.4 fL (80.0-100.0); Mean Platelet Volume 11.7 fL (9.4-12.4); Platelet Count 135 K/uL (130-400); RDW Coefficient of Variation 12.6 % (11.5-14.5); RDW Standard Deviation 41.9 fL (36.4-46.3); Red Blood Count 5.23 M/uL (4.70-6.10); White Blood Count 5.55 K/ul (4.8-10.8)
[2023-06-20 07:55] LABS: BUN Creatinine Ratio 22.5 (10-20); Calcium 9.5 mg/dl (8.6-10.3); Creatinine Clr Calc Pharmacy 125.6 ml/min; Est GFR (African American) 109.4 ml/min; Est GFR (Non-African American) 94.4 ml/min; Magnesium 2.2 mg/dl (1.7-2.4); Potassium 4.1 mmol/L (3.5-5.1)
[2023-06-20 08:10] LABS: Lyme Ab IgG w/WB Rflx Negative (Negative); Lyme Ab IgM w/WB Rflx Negative (Negative)
[2023-06-20] MEDS: CHOLECALCIFEROL 1,000 UNITS 25 MCG TAB PO SCH (08:12)
[2023-06-20] MEDS: MULTIVITAMIN TAB PO SCH (08:12)
[2023-06-20] MEDS: ADVANCED PROBIOTIC 1250 MG CAPSULE PO SCH (08:13)
[2023-06-20] MEDS: DOXYCYCLINE HYCLATE 100 MG CAP PO SCH (08:13)
[2023-06-20] MEDS: allopurinoL 100 MG TAB PO SCH (08:13)
[2023-06-20] MEDS: metroNIDAZOLE 0.75% TOPICAL GEL 45 GM TUBE TOP SCH (08:14)
[2023-06-20] MEDS: INSULIN ASPART PER UNIT CHARGE SC SCH ×2 (08:20→12:48)
[2023-06-20] MEDS: PREGABALIN 150 MG CAP PO SCH (08:23)
--- NOTE | 2023-06-20 11:01 | Cardiology Progress Note ---
Date of Service June 20, 2023 Assessment & Plan (1) Atrial fibrillation with slow ventricular response: (2) HLD (hyperlipidemia): (3) HTN (hypertension): Plan 73-year-old male referred from outpatient [place] clinic due to bradycardia. Patient with positional lightheadedness. No overt syncope or near syncope. Rhythm is atrial fibrillation with slow ventricular response. No significant pauses currently however heart rate dipping as low as 30 bpm. Hold beta-issa therapy. Continue telemetry monitoring. Evaluation regarding tickborne illness. Continue oral anticoagulation with Eliquis. No indication for temporary transvenous pacemaker at this time. 08/19/2023 Impression: 73-year-old male with persistent atrial fibrillation noted on routine examination to have atrial fibrillation with slow ventricular response rate. Beta-issa has been held Atrial fibrillation rates are increasing slightly but still relatively slow. Findings suggest intrinsic conduction system disease and may ultimately warrant pacemaker insertion Maintain telemetry Hold Eliquis in a.m. 08/20/2023 Atrial fibrillation rates have not responded to discontinuation of beta-issa. Would not resume I suspect patient will ultimately require pacemaker in the future but no indications for such currently We will resume Eliquis Patient may be discharged home with plan to follow-up with [place] primary We will make arrangements for outpatient follow-up with cardiology [facility] Patient to promptly return with any cardiac complaints Admission and Anticipated Discharge Date Admission Date: June 19, 2023 Subjective Patient without complaints sitting out of bed in chair. Heart rates have improved. No dizziness or lightheadedness no tachycardia or bradycardia arrhythmias of significance. Telemetry atrial fibrillation Review of Systems Review of Systems: All systems reviewed & are unremarkable except as noted in Subjective Physical Exam Constitutional: well developed and well nourished; no acute distress Respiratory: no respiratory distress, no labored breathing and no retractions Auscultation: lungs clear to auscultation bilaterally; no crackles, no rales and no rhonchi Cardiovascular: Rate/Rhythm: + irregularly irregular Heart Sounds: normal S1 and normal S2; no murmur Vessels: no JVD and no carotid bruit Extremities: no edema Gastrointestinal (Abdomen): Inspection/Auscultation: abdomen normal to inspection and normal bowel sounds; abdomen not distended Percussion/Palpation: abdomen soft; abdomen nontender, no guarding and abdomen not rigid Neurologic: CN's II-XI intact bilaterally and moves all extremities; no focal motor deficits Psychiatric: A+Ox3, euthymic affect Results & Data Vital Signs (Past 12 Hours) Vital Signs Temp Pulse Resp BP BP Pulse Ox O2 Del Method 06/20/23 07:41 36.8 C 54 L 16 139/76 96 Room Air 06/20/23 04:00 36.5 C 76 20 151/77 H 97 Room Air Laboratory Results Laboratory Results - last 24 hr 06/19/23 06/19/23 06/19/23 11:28 16:31 20:14 WBC RBC Hgb Hct MCV MCH MCHC RDW Std Deviation RDW Coeff of Gabriel Plt Count MPV Sodium Potassium Chloride Carbon Dioxide Anion Gap BUN Creatinine Est Cr Clr Drug Dosing Est GFR ( Amer) Est GFR (Non-Af Amer) BUN/Creatinine Ratio Glucose POC Glucose 105 H 96 102 H Calcium Magnesium Lyme Disease IgG Ab Lyme Disease IgM Ab 06/20/23 06/20/23 06/20/23 06:25 06:25 06:25 WBC 5.55 RBC 5.23 Hgb 16.8 Hct 47.3 MCV 90.4 MCH 32.1 MCHC 35.5 RDW Std Deviation 41.9 RDW Coeff of Gabriel 12.6 Plt Count 135 MPV 11.7 Sodium 140 Potassium 4.1 Chloride 105 Carbon Dioxide 28 Anion Gap 7 BUN 16 Creatinine 0.71 Est Cr Clr Drug Dosing 125.6 Est GFR ( Amer) 109.4 Est GFR (Non-Af Amer) 94.4 BUN/Creatinine Ratio 22.5 H Glucose 117 H POC Glucose Calcium 9.5 Magnesium 2.2 Lyme Disease IgG Ab Negative Lyme Disease IgM Ab Negative 06/20/23 07:17 WBC RBC Hgb Hct MCV MCH MCHC RDW Std Deviation RDW Coeff of Gabriel Plt Count MPV Sodium Potassium Chloride Carbon Dioxide Anion Gap BUN Creatinine Est Cr Clr Drug Dosing Est GFR ( Amer) Est GFR (Non-Af Amer) BUN/Creatinine Ratio Glucose POC Glucose 117 H Calcium Magnesium Lyme Disease IgG Ab Lyme Disease IgM Ab
--- NOTE | 2023-06-20 13:03 | Hospitalist Progress Note ---
Date of Service June 20, 2023 Assessment & Plan (1) Atrial fibrillation: (2) HTN (hypertension): (3) HLD (hyperlipidemia): (4) Bradycardia: (5) Obesity (BMI 35.0-39.9 without comorbidity): (6) ADE on CPAP: Plan: Patient is a 73 yr male with H/O Chronic A-fib, HTN, HLD, ADE on CPAP, history of stroke, s/p thyroid nodule removal, severe obesity, who presented to outpatient [facility] office today for a conjunctival hemorrhage where he was noted to have heart rate in the 40s there so was referred to the ER. Atrial fibrillation with slow ventricular response Reports having ongoing intermittent dizziness but denies any syncopal episodes Normal TSH Lyme screen negative -ECHO: Left ventricle is normal in size. Mild concentric LVH. Left ventricle wall motion is normal. EF 50 to 55%. Left atrium is severely dilated. Right atrium is mildly dilated. Focal calcification of the left coronary aortic valve cusp. Hold beta-blockers--discontinue for now as per cardiology recommendations On Eliquis for anticoagulation Appreciate cardiology input Will eventually likely need pacemaker placement Heart rate improved Follow-up with cardiology upon discharge Rosacea -continue metronidazole and tretinoin cream topically, Also on PO doxycycline 1 00 mg daily Gout -Continue allopurinol HLD Continue stable ADE on CPAP Continue CPAP at bedtime DM type II HbA1c 6.5 Hold metformin Continue insulin while hospitalized Obesity BMI 36 DVT Px: Eliquis CODE STATUS: FULL CODE Disposition Home Admission and Anticipated Discharge Date Admission Date: June 19, 2023 Subjective Patient is seen and examined at bedside Dizziness resolved as per patient Heart rate improved No new complaints Eager to get discharged Denies any chest pain, dyspnea, nausea, vomiting, abdominal pain Plan to discharge home today Review of Systems Review of Systems: All systems reviewed & are unremarkable except as noted in Subjective Physical Exam Physical Exam: Physical Exam: Vitals signs as noted above General Appearance:Moderately built and nourished, no apparent distress Head: normocephalic, Atraumatic Eyes: normal inspection, EOMI, +R subconjunctival hemorrhage Neck: supple, Trachea midline Respiratory/Chest: Normal breath sounds, CTA, No accessory muscle use Cardiovascular: S1, S2, No murmur, + bradycardia Abdomen/GI:Soft, Non tender, Bowel sounds present Extremities/Musculoskeletal:normal inspection, no edema Neurologic/Psych:AAOX3, grossly no focal neurological deficits Skin: normal color, warm Results & Data Results & Data Vital Signs (Past 12 Hours) Vital Signs Temp Pulse Resp BP BP Pulse Ox O2 Del Method 06/20/23 11:59 37.9 C H 92 H 18 129/73 94 Room Air 06/20/23 07:41 36.8 C 54 L 16 139/76 96 Room Air 06/20/23 04:00 36.5 C 76 20 151/77 H 97 Room Air Laboratory Results Short CBC 06/20/23 Range/Units 06:25 WBC 5.55 (4.8-10.8) K/ul Hgb 16.8 (14.0-18.0) g/dl Hct 47.3 (42.0-52.0) % Plt Count 135 (130-400) K/uL BMP 06/20/23 06:25 Sodium 140 Potassium 4.1 Chloride 105 Carbon Dioxide 28 BUN 16 Creatinine 0.71 Glucose 117 H Calcium 9.5 (1) Atrial fibrillation Atrial fibrillation type: unspecified Qualified Code(s): I48.91 - Unspecified atrial fibrillation
--- NOTE | 2023-06-20 13:08 | Discharge Summary ---
Date of Service June 20, 2023 Admission HPI Per Admitting Provider This is a 73-year-old male with PMHx of chronic A-fib, HTN, HLD, ADE on CPAP, history of stroke, s/p thyroid nodule removal, severe obesity, who presented to [facility] today for a conjunctival hemorrhage where he was noted to have heart rate in the 40s there so was referred to the ER. 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 Honestly he has noticed his HR on his watch be in the 40s intermittently for the past 2 months. He Denies chest pain and shortness of breath. His watch gives him a warning when his HR is below 40 and has been doing this pretty consistently. Patient has been taking his medications as instructed including metoprolol 50 mg twice a day. Admission Exam Per Admitting Provider General: awake, alert, no apparent distress,+ obese with BMI of 35.8 Head: Normocephalic, atraumatic ENT: PERRL, EOMI, no pharyngeal exudate, mucous membranes moist Chest: Clear to auscultation, on room air, no adventitious breath sounds Cardiac Bradycardic in the high 30s and irregularly irregular, no murmur, no J VD, normal peripheral pulses, good capillary refill Abdominal: NABS x 4 quadrants, soft, nondistended, nontender to palpation, no rebound or guarding Extremities: Normal inspection, no peripheral edema or erythema, calfs nontender to palpation Psych: Normal mood and affect Neuro: AAO x 3, strength intact bilaterally and rated 5/5, no motor deficits, speech is clear, no peripheral sensory deficits Principal Diagnosis Atrial fibrillation with slow ventricular response Discharge Data Allergies Allergy/AdvReac Type Severity Reaction Status Date / Time No Known Allergies Allergy Unverified 06/18/23 14:28 Consultations 06/18/23 14:39 ED Decision to Admit Stat 06/18/23 18:43 Consult Cardiology Routine Procedures Performed Laboratory Results WBC 5.55 K/ul (4.8-10.8) 06/20/23 06:25 RBC 5.23 M/uL (4.70-6.10) 06/20/23 06:25 Hgb 16.8 g/dl (14.0-18.0) 06/20/23 06:25 Hct 47.3 % (42.0-52.0) 06/20/23 06:25 MCV 90.4 fL (80.0-100.0) 06/20/23 06: MCH 32.1 pg (25.0-34.0) 06/20/23 06: MCHC 35.5 g/dL (32.0-36.0) 06/20/23 06: RDW Std Deviation 41.9 fL (36.4-46.3) 06/20/23 06: RDW Coeff of Gabriel 12.6 % (11.5-14.5) 06/20/23 06: Plt Count 135 K/uL (130-400) 06/20/23 06: MPV 11.7 fL (9.4-12.4) 06/20/23 06: Immature Gran % (Auto) 0.3 % 06/18/23 12:25 Neut % (Auto) 65.4 % 06/18/23 12:25 Lymph % (Auto) 23.5 % 06/18/23 12:25 [facility] % (Auto) 8.4 % 06/18/23 12:25 Eos % (Auto) 1.9 % 06/18/23 12:25 Baso % (Auto) 0.5 % 06/18/23 12:25 Neut # (Auto) 4.13 K/uL (1.40-6.50) 06/18/23 12:25 Lymph # (Auto) 1.48 K/uL (1.20-3.40) 06/18/23 12:25 [facility] # (Auto) 0.53 K/uL (0.11-0.59) 06/18/23 12:25 Eos # (Auto) 0.12 K/uL (0.00-0.50) 06/18/23 12:25 Baso # (Auto) 0.03 K/uL (0.00-0.20) 06/18/23 12:25 Immature Gran # (Auto) 0.02 K/uL (0.01-0.20) 06/18/23 12:25 PT 11.4 Seconds (9.0-12.0) 06/18/23 12:25 INR 1.0 (0.9-1.1) 06/18/23 12:25 APTT 31.6 Seconds (21.0-31.0) H 06/18/23 12:25 PTT Ratio 1.1 06/18/23 12:25 Sodium 140 mmol/L (136-145) 06/20/23 06:25 Potassium 4.1 mmol/L (3.5-5.1) 06/20/23 06:25 Chloride 105 mmol/L (98-107) 06/20/23 06:25 Carbon Dioxide 28 mmol/L (21-32) 06/20/23 06:25 Anion Gap 7 (3-11) 06/20/23 06:25 BUN 16 mg/dl (6-23) 06/20/23 06:25 Creatinine 0.71 mg/dl (0.6-1.4) 06/20/23 06:25 Est Cr Clr Drug Dosing 125.6 ml/min 06/20/23 06:25 Est GFR ( Amer) 109.4 ml/min 06/20/23 06:25 Est GFR (Non-Af Amer) 94.4 ml/min 06/20/23 06:25 BUN/Creatinine Ratio 22.5 (10-20) H 06/20/23 06:25 Glucose 117 mg/dl (70-99(Fasting)) H 06/20/23 06:25 POC Glucose 99 mg/dl (70-99) 06/20/23 11:22 Estimat Average Glucose 140 mg/dl 06/19/23 06:21 Hemoglobin A1c 6.5 % (4.5-5.6) H 06/19/23 06:21 Calcium 9.5 mg/dl (8.6-10.3) 06/20/23 06:25 Magnesium 2.2 mg/dl (1.7-2.4) 06/20/23 06:25 Total Bilirubin 2.5 mg/dl (0.2-1.0) H 06/18/23 12:25 AST 21 U/L (13-39) 06/18/23 12:25 ALT 24 U/L (7-52) 06/18/23 12:25 Alkaline Phosphatase 71 U/L (34-104) 06/18/23 12:25 Troponin I High Sens 6.1 pg/ml (0-20) 06/18/23 12:25 Total Protein 6.9 gm/dl (6.0-8.3) 06/18/23 12:25 Albumin 4.3 gm/dl (3.4-5.0) 06/18/23 12:25 Globulin 2.6 gm/dl (2.5-4.0) 06/18/23 12:25 Albumin/Globulin Ratio 1.7 (0.9-2) 06/18/23 12:25 Triglycerides 134 mg/dl (0-150) 06/19/23 06:21 Cholesterol 116 mg/dl (0-200) 06/19/23 06:21 LDL Cholesterol, Calc 60 mg/dl 06/19/23 06:21 VLDL Cholesterol, Calc 27 mg/dl (0-30) 06/19/23 06:21 HDL Cholesterol 29 mg/dl 06/19/23 06:21 Cholesterol/HDL Ratio 4.0 (0-5) 06/19/23 06:21 TSH 1.157 uIu/ml (0.300-4.500) 06/18/23 12:25 Anaplasma Smear See Comment 06/18/23 12:25 Babesia Smear See Comment 06/18/23 12:25 Lyme Disease IgG Ab Negative (Negative) 06/20/23 06:25 Lyme Disease IgM Ab Negative (Negative) 06/20/23 06:25 Impressions Chest X-Ray 06/18/23 12:18 XR chest 1V portable HISTORY: 73 years-old Male Dysrhythmia COMPARISON: None TECHNIQUE: AP view of the chest FINDINGS: Cardiac silhouette is enlarged. Mediastinal contours are within normal limits. No pneumothorax, pleural effusion, airspace consolidation or pulmonary edema. Bones appear grossly intact. Degenerative changes of the shoulders and spine. IMPRESSION: Cardiomegaly without acute process. ACT 112: Negative or not required by law. The above report was generated using voice recognition software. It may contain grammatical, syntax or spelling errors. Electronically signed by: Gurpreet Lindo M.D. 06/18/2023 12:58 PM Hospital Course (1) Atrial fibrillation: (2) HTN (hypertension): (3) HLD (hyperlipidemia): (4) Bradycardia: (5) Obesity (BMI 35.0-39.9 without comorbidity): (6) ADE on CPAP: Patient is a 73 yr male with H/O Chronic A-fib, HTN, HLD, ADE on CPAP, history of stroke, s/p thyroid nodule removal, severe obesity, [facility] where he was noted to have heart rate in the 40s there so was referred to the ER. Atrial fibrillation with slow ventricular response Reports having ongoing intermittent dizziness but denies any syncopal episodes Normal TSH Lyme screen negative -ECHO: Left ventricle is normal in size. Mild concentric LVH. Left ventricle wall motion is normal. EF 50 to 55%. Left atrium is severely dilated. Right atrium is mildly dilated. Focal calcification of the left coronary aortic valve cusp. Hold beta-blockers--discontinue for now as per cardiology recommendations On Eliquis for anticoagulation Appreciate cardiology input Will eventually likely need pacemaker placement Heart rate improved Follow-up with cardiology upon discharge Rosacea -continue metronidazole and tretinoin cream topically, Also on PO doxycycline 100 mg daily Gout -Continue allopurinol HLD Continue stable ADE on CPAP Continue CPAP at bedtime DM type II HbA1c 6.5 Hold metformin Continue insulin while hospitalized Obesity BMI 36 DVT Px: Eliquis CODE STATUS: FULL CODE Disposition Home Total Time Total Time Spent Total Time Spent (In Minutes): 54 minutes Discharge Plan Discharge Items Patient Disposition: Home - Self-Care Reason For Visit: AFIB, BRADYCARDIC Discharge Diagnosis: Atrial fibrillation with slow ventricular response Activity: Per Instructions section Exercise/Sports: Wait until after follow-up appointment Non-emergency contact: Primary Care Provider and [employer] Call non-emergency contact if: you have any medication questions, your symptoms worsen, your pain is concerning for you and you have a fever Follow-up/Referrals: [facility] [Primary Care Provider] - Diet: Carb Consistent or DM2 and Heart Healthy Addtl Attending Provider Instructions: Follow-up with your primary care physician in 1 week Follow-up with your advanced practice registered nurse Dr. Nielsen as recommended --Your metoprolol is discontinued as recommended by your advanced practice registered nurse. Seek immediate medical attention if your symptoms reoccur or worsen Please take all medications as instructed on discharge list below. Please call if you have any questions or problems. You can reach a [facility] hospitalist on duty at [facility] 24 hours a day by calling [phone] Pending Studies at Discharge: No Stand-Alone Forms: My [facility], Smoking Cessation Medications and DC Order Prescriptions: Continued multivitamin Tablet 1 tab PO DAILY tretinoin 0.1 % Cream 1 applic TOPICAL HS atorvastatin 40 mg Tablet 40 mg PO HS metformin 500 mg Tablet 500 mg PO BID sildenafil 50 mg Tablet 50 mg PO DAILY MDD 1 PRN (Reason: Sexual Activity) Rx Instructions: administer 30 minutes to 4 hours before activity metronidazole 0.75 % Cream 1 applic TOPICAL BID doxycycline hyclate 100 mg Tablet 100 mg PO DAILY apixaban 5 mg Tablet 5 mg PO BID Probiotic 3 billion cell Capsule 3,000 mmu cells PO DAILY Rx Instructions: administer with a meal allopurinol 200 mg Tablet 200 mg PO DAILY cholecalciferol (vitamin D3) [Vitamin D3] 50 mcg (2,000 unit) Tablet 50 mcg PO DAILY Discontinued metoprolol tartrate 50 mg Tablet 50 mg PO BID Discharge Orders: Discharge Order (Routine); Ordered 06/20/23 Ordered By: Ernesto Aragon Admission Data Admit Date/Time: 06/19/23 12:58 Attending Provider: Ernesto Aragon Admit Provider: Shin Alonzo Primary Care Provider: [facility] Other Providers: Shin Alonzo ; Fahad Ny
== END 2023-06-20 14:13 | disposition home or self-care (01) | DRG 310 ==
LOC: ED 12:14 → 2S 12:14 → SUATTDRO 14:46 → 2S 18:05